=== PATIENT | male | born 1975 | race African-American/Black ===

== ENCOUNTER 2018-07-05 12:56 | Emergency (ER) | payer MEDICAID ==
[~2018-07-05] VITALS: Ht 180.3 cm; Wt 84.8 kg
[~2018-07-05 12:56] MED LIST: ALBUPOW26
[2018-07-05 15:12] VITALS: BP 140/87
[2018-07-05 16:10] LABS: Urine Bacteria NONE SEEN /hpf (None Seen); Urine Blood Negative /uL (Negative); Urine Mucus FEW (None Seen); Urine Specific Gravity 1.028 (1.001-1.035); Urine Sperm PRESENT /hpf (None Seen); Urine WBC 670 /hpf (0 - 3)
== END 2018-07-05 16:00 | disposition home or self-care (01) ==
LOC: ER 13:05
DX: N39.0 Urinary tract infection, site not specified (principal)
CPT/HCPCS: 81001

== ENCOUNTER 2023-03-26 10:52 | Emergency (ER) | payer MEDICAID ==
[~2023-03-26] VITALS: Ht 180.3 cm; Wt 81.6 kg
[2023-03-26 11:20] VITALS: BP 123/83; PULSE 107; RESP 18; TEMP 98.2; O2SAT 95
[2023-03-26] MEDS ORDERED: IPRATROPIUM BROM 0.5 MG/2.5ML INH SOL NEB ONE (11:30)
[2023-03-26] MEDS ORDERED: ALBUTEROL SULF 2.5 MG/0.5ML(0.5%) NEB SOLN NEB ONE (11:30)
== END 2023-03-26 12:04 | disposition home or self-care (01) ==
LOC: ER 10:52
DX: J45.901 Unspecified asthma with (acute) exacerbation (principal)
CPT/HCPCS: 94640

== ENCOUNTER 2023-03-27 23:39 | Emergency (ER) | payer MEDICAID ==
[~2023-03-27] VITALS: Ht 177.8 cm; Wt 86.3 kg
[2023-03-27 23:47] VITALS: BP 159/88; PULSE 94; RESP 20; O2SAT 97
[2023-03-28] MEDS ORDERED: methylPREDNISolone SOD SUCC 125 MG/2 ML VL IM ONE (00:45)
[2023-03-28] MEDS ORDERED: ALBUTEROL SULF 2.5 MG/0.5ML(0.5%) NEB SOLN NEB ONE (00:45)
[2023-03-28] MEDS ORDERED: IPRATROPIUM BROM 0.5 MG/2.5ML INH SOL NEB ONE (00:45)
== END 2023-03-28 00:40 | disposition left against medical advice (07) ==
LOC: EDBD 23:39 → EDSEX 23:39 → ER 23:39
DX: J45.901 Unspecified asthma with (acute) exacerbation (principal); R07.89 Other chest pain
CPT/HCPCS: 71045

== ENCOUNTER 2023-06-17 06:33 | Emergency (ER) | payer MEDICAID ==
[~2023-06-17] VITALS: Ht 180.3 cm; Wt 79.0 kg
[~2023-06-17 06:33] MED LIST changes: +NAPR-1335 PO
[2023-06-17 07:51] VITALS: BP 145/88; PULSE 85; RESP 16; TEMP 98.2; O2SAT 96
[2023-06-17] MEDS ORDERED: PRED20TA2 PO (08:05)
[2023-06-17] MEDS ORDERED: PROM1SOL4 PO (08:05)
== END 2023-06-17 08:14 | disposition home or self-care (01) ==
LOC: ER 06:33
DX: J20.9 Acute bronchitis, unspecified (principal); J45.909 Unspecified asthma, uncomplicated
CPT/HCPCS: 71045

== ENCOUNTER 2023-07-28 00:42 | Emergency (ER) | payer MEDICAID ==
[~2023-07-28] VITALS: Ht 180.3 cm; Wt 79.4 kg
[~2023-07-28 00:42] MED LIST changes: +PRED20TA2 PO; +PROM1SOL4 PO
[2023-07-28 03:20] LABS: Basophils # (auto) 0 10 ^3/uL (0-0.2); Basophils % (auto) 0.6 % (0.0-2.0); Eosinophils # (auto) 0.1 10 ^3/uL (0-0.8); Eosinophils % (auto) 1.9 % (0.0-7.0); Hematocrit 42.3 % (41.0-53.0); Hemoglobin 13.8 g/dL (13.5-17.5); Lymphocytes % (auto) 43.9 % (10.0-50.0); Mean Corpuscular Hemoglobin 31.3 pg (28.0-32.0); Mean Corpuscular Hgb Conc. 32.7 g/dL (32.0-36.0); Mean Corpuscular Volume 95.7 fL (80.0-100.0); Monocytes # (auto) 0.5 10 ^3/uL (0-1.3); Monocytes % (auto) 10.8 % (0.0-12.0); Neutrophils # (auto) 1.9 10 ^3/uL (1.6-8.6); Neutrophils % (auto) 42.8 % (37.0-80.0); Nucleated Red Blood Cells % 0.3 %; Red Blood Cells 4.42 10^6/uL (4.5-5.90); Red Cell Distribution Width 13.9 % (11.8-14.3); White Blood Cell 4.5 10^3/uL (4.4-10.8)
[2023-07-28] MEDS ORDERED: ACET500T58 PO (03:21)
[2023-07-28 03:29] LABS: Chloride 105 mmol/L (98-107); Potassium 3.3 mmol/L (3.5-5.1); Sodium 138 mmol/L (136-145)
[2023-07-28 03:30] LABS: Anion Gap 8 (5-15); Calcium 9.1 mg/dL (8.7-10.4); Carbon Dioxide 25 mmol/L (20-30)
[2023-07-28 03:35] LABS: BUN/Creatinine Ratio 13.1 (10.0-20.0); Blood Urea Nitrogen 13 mg/dL (9-23); Glucose 91 mg/dL (74-106)
[2023-07-28 03:52] LABS: COVID19 ANTIGEN SOFIA FIA NEGATIVE (NEGATIVE); Rapid Influenza A Negative (Negative); Rapid Influenza B Negative (Negative)
[2023-07-28 04:00] VITALS: BP 128/85; PULSE 84; RESP 18; TEMP 98.2; O2SAT 100
[2023-07-28] MEDS: POTASSIUM CHL 20 Meq TABLET PO ONE (04:15)
== END 2023-07-28 04:18 | disposition home or self-care (01) ==
LOC: ER 00:42
DX: K52.9 Noninfective gastroenteritis and colitis, unspecified (principal); E86.0 Dehydration; J45.909 Unspecified asthma, uncomplicated; Z20.822 Contact with and (suspected) exposure to COVID-19
CPT/HCPCS: 36415; 80048; 85025; 87426; 87804

== ENCOUNTER 2023-09-11 01:51 | Emergency (ER) | payer MEDICAID ==
[~2023-09-11] VITALS: Ht 180.3 cm; Wt 78.2 kg
[~2023-09-11 01:51] MED LIST changes: +ACET500T58 PO
[2023-09-11 02:15] VITALS: BP 128/86; PULSE 92; RESP 16; TEMP 97.2
[2023-09-11] MEDS ORDERED: IBUP-1455 PO (03:25)
[2023-09-11] MEDS ORDERED: BACDST PO (03:25)
[2023-09-11] MEDS ORDERED: HYDR-4902 PO (03:25)
[2023-09-11] MEDS: HYDROcodone-ACET 5/325MG TAB PO ONE (03:56)
[2023-09-11 04:20] VITALS: O2SAT 97
== END 2023-09-11 04:33 | disposition home or self-care (01) ==
LOC: ER 01:51
DX: L02.211 Cutaneous abscess of abdominal wall (principal); J45.909 Unspecified asthma, uncomplicated

== ENCOUNTER 2023-09-15 01:12 | Emergency (ER) | payer MEDICAID ==
[~2023-09-15] VITALS: Ht 172.7 cm; Wt 72.0 kg
[2023-09-15 01:12] VITALS: BP 146/90; PULSE 87; RESP 18; O2SAT 100
[~2023-09-15 01:12] MED LIST changes: +BACDST PO; +HYDR-4902 PO; +IBUP-1455 PO
[2023-09-15] MEDS ORDERED: CEPH500C PO (04:43)
[2023-09-15] MEDS ORDERED: KETOROLAC TROMETH 60MG/2ML VIAL IM ONE (04:45)
[2023-09-15] MEDS: cefTRIAXone SOD 1,000 MG VL IM ONE (04:56)
== END 2023-09-15 05:01 | disposition home or self-care (01) ==
LOC: ER 01:12 → EDBD 01:12 → ER 05:01
DX: L03.311 Cellulitis of abdominal wall (principal); F17.210 Nicotine dependence, cigarettes, uncomplicated; F12.10 Cannabis abuse, uncomplicated; F15.10 Other stimulant abuse, uncomplicated; J45.909 Unspecified asthma, uncomplicated
CPT/HCPCS: 96372; 99283; J0696

== ENCOUNTER 2023-09-17 13:26 | Emergency (ER) | payer MEDICAID ==
[~2023-09-17] VITALS: Ht 180.3 cm; Wt 73.8 kg
[~2023-09-17 13:26] MED LIST changes: +CEPH500C PO
[2023-09-17 14:15] VITALS: BP 134/84; PULSE 96; RESP 16; TEMP 97.5; O2SAT 95
[2023-09-17] MEDS ORDERED: CEPH500C PO (14:41)
[2023-09-17] MEDS ORDERED: NAPR-746 PO (14:41)
== END 2023-09-17 14:47 | disposition home or self-care (01) ==
LOC: ER 13:36
DX: L02.211 Cutaneous abscess of abdominal wall (principal); Z48.01 Encounter for change or removal of surgical wound dressing; J45.909 Unspecified asthma, uncomplicated; F17.210 Nicotine dependence, cigarettes, uncomplicated; F12.10 Cannabis abuse, uncomplicated; F15.10 Other stimulant abuse, uncomplicated; Z79.899 Other long term (current) drug therapy

== ENCOUNTER 2023-10-05 01:20 | Emergency (ER) | payer MEDICAID ==
[~2023-10-05] VITALS: Ht 180.3 cm; Wt 77.5 kg
[~2023-10-05 01:20] MED LIST changes: +NAPR-746 PO
[2023-10-05 01:39] VITALS: BP 139/99; PULSE 103; RESP 20; O2SAT 98
== END 2023-10-05 07:46 | disposition left against medical advice (07) ==
LOC: ER 01:20
DX: M25.562 Pain in left knee (principal); Z53.21 Procedure and treatment not carried out due to patient leaving prior to being seen by health care provider

== ENCOUNTER 2023-10-27 06:34 | Emergency (ER) | payer MEDICAID ==
[~2023-10-27] VITALS: Ht 180.3 cm; Wt 81.4 kg
[2023-10-27 06:45] VITALS: BP 134/93; PULSE 83
[2023-10-27 07:00] VITALS: RESP 18; O2SAT 100
[2023-10-27] MEDS: IPRATROPIUM BROM 0.5 MG/2.5ML INH SOL NEB ONE (07:00)
[2023-10-27] MEDS: ALBUTEROL SULF 2.5 MG/0.5ML(0.5%) NEB SOLN NEB ONE (07:00)
== END 2023-10-27 07:42 | disposition left against medical advice (07) ==
LOC: ER 06:34
DX: J45.909 Unspecified asthma, uncomplicated (principal); Z53.21 Procedure and treatment not carried out due to patient leaving prior to being seen by health care provider
CPT/HCPCS: 94640

== ENCOUNTER 2023-11-27 20:20 | Emergency (ER) | payer MEDICAID ==
[~2023-11-27] VITALS: Ht 175.3 cm; Wt 85.0 kg
[2023-11-27 20:20] VITALS: BP 140/89; RESP 20; O2SAT 100
[2023-11-27 20:46] VITALS: PULSE 82
== END 2023-11-27 21:47 | disposition left against medical advice (07) ==
LOC: EDBD 20:20 → ER 20:20
DX: J45.901 Unspecified asthma with (acute) exacerbation (principal); F17.210 Nicotine dependence, cigarettes, uncomplicated; F12.10 Cannabis abuse, uncomplicated; F15.10 Other stimulant abuse, uncomplicated
CPT/HCPCS: 93005

== ENCOUNTER 2023-12-22 00:03 | Emergency (ER) | payer MEDICAID ==
[~2023-12-22] VITALS: Ht 177.8 cm; Wt 82.3 kg
[2023-12-22 00:05] VITALS: BP 144/100; RESP 18; TEMP 98.8; O2SAT 96
[2023-12-22] MEDS ORDERED: ALBUAER3 IN (01:37)
[2023-12-22] MEDS ORDERED: PRED20TA2 PO (01:37)
[2023-12-22] MEDS ORDERED: AZIT-43 PO (01:37)
[2023-12-22 01:48] VITALS: PULSE 83
== END 2023-12-22 01:51 | disposition home or self-care (01) ==
LOC: ER 00:03 → EDBD 00:03 → ER 01:46
DX: J06.9 Acute upper respiratory infection, unspecified (principal); F15.10 Other stimulant abuse, uncomplicated; J45.909 Unspecified asthma, uncomplicated; F17.210 Nicotine dependence, cigarettes, uncomplicated
CPT/HCPCS: 71045; 93005

== ENCOUNTER 2024-02-07 18:41 | Emergency (ER) | payer MEDICAID ==
[~2024-02-07] VITALS: Ht 172.7 cm; Wt 68.2 kg
[2024-02-07] MEDS: ONDANSETRON HCL 4 MG/2 ML VIAL IV ONE (01:00)
[2024-02-07] MEDS: DEXTROSE (50%) 50ML SYRG IV ONE (01:00)
[2024-02-07] MEDS: SODIUM CHLORIDE 0.9% 1,000 ML IV ONE (01:00)
[~2024-02-07 18:41] MED LIST changes: +ALBUAER3 IN; +AZIT-43 PO
[2024-02-07 19:16] LABS: Basophils # (auto) 0 10 ^3/uL (0-0.2); Basophils % (auto) 0.1 % (0.0-2.0); Eosinophils # (auto) 0 10 ^3/uL (0-0.8); Eosinophils % (auto) 0.6 % (0.0-7.0); Hematocrit 44.8 % (41.0-53.0); Hemoglobin 14.4 g/dL (13.5-17.5); Lymphocytes # (auto) 2.7 10 ^3/uL (0.4-5.4); Lymphocytes % (auto) 47.1 % (10.0-50.0); Mean Corpuscular Hemoglobin 31.9 pg (28.0-32.0); Mean Corpuscular Hgb Conc. 32.2 g/dL (32.0-36.0); Mean Corpuscular Volume 99.3 fL (80.0-100.0); Monocytes # (auto) 0.5 10 ^3/uL (0-1.3); Monocytes % (auto) 8.3 % (0.0-12.0); Neutrophils # (auto) 2.5 10 ^3/uL (1.6-8.6); Neutrophils % (auto) 43.9 % (37.0-80.0); Nucleated Red Blood Cells % 0.1 %; Platelet Count (auto) 255 10^3/uL (140-450); Red Blood Cells 4.52 10^6/uL (4.5-5.90); Red Cell Distribution Width 13.8 % (11.8-14.3); White Blood Cell 5.7 10^3/uL (4.4-10.8)
[2024-02-07 19:35] LABS: Alanine Aminotransferase 38 U/L (7-40); Alkaline Phosphatase 88 U/L (46-116); Anion Gap 12 (5-15); BUN/Creatinine Ratio 12.6 (10.0-20.0); Blood Urea Nitrogen 12 mg/dL (9-23); Calcium 9.8 mg/dL (8.7-10.4); Carbon Dioxide 24 mmol/L (20-31); Chloride 105 mmol/L (98-107); Lipase 42 U/L (12-53); Potassium 4.3 mmol/L (3.5-5.1); Sodium 141 mmol/L (136-145)
[2024-02-07 19:36] LABS: Albumin 4.4 g/dL (3.2-4.8); Bilirubin, Total 0.7 mg/dL (0.2-1.0); Total Protein 7.5 g/dL (5.7-8.2)
[2024-02-07 19:40] LABS: Aspartate Aminotransferase 46 U/L (13-40); Glucose 68 mg/dL (74-106)
[2024-02-07 19:42] LABS: Lactic Acid w/Reflex 2.6 mmol/L (0.4-2.0)
--- NOTE | 2024-02-07 19:54 | ED.PDOC ---
GI ASSESSMENT HPI Comments HPI: HPI: Poor Historian. 48-year-old male [place] in by ambulance [place] the bus stop. Patient requested someone to call 911 because he was having abdominal pain with nausea and vomiting. Patient states having generalized abdominal pain that is intermittent. He said that he suspects he got a food poisoning from eating [place] food earlier today. Vomit is nonbilious nonbloody. Denies diarrhea. No particular alleviating or precipitating factors. Initial Vitals: Temp : 97.7F BP: 170/109 HR: 76 RR: 18 O2 Sat.: 99% Past Medical History: Asthma Past Surgical History: Denies Social History: Smokes cigarettes, denies ETOH use, Marijuana and Methamphetamine use. Medications: No medications. Allergies: NKDA REVIEW OF SYSTEMS: CONSTITUTIONAL: Denies acute: fever, diaphoresis, chills, HEAD: Denies acute: headache, photophobia Eyes: Denies acute: Double vision, vision loss, eye pain, eye discharge. EARS: Denies acute: tinnitus, hearing loss, ear discharge, ear pain, THROAT: Denies acute: sore throat, swelling, difficulty swallowing , pain with swallowing, change in voice. NECK: Denies acute: neck pain, neck swelling, stiff neck. HEART: Denies acute : chest pain, palpitations, LUNGS: Denies acute: SOB, wheezing, cough, hemoptysis ABDOMEN: Denies acute: diarrhea, melena , hematemesis, hematochezia SKIN: Denies acute: rash, redness, lesions, itchiness. EXTREMITIES: Denies acute: calf pain, numbness, tingling, weakness, denies pain in extremity. Denies acute: Low back pain. Neuro: Denies acute: focal neurological deficit, motor or sensory focal neurological deficit, tremors, seizure like activity, confusion, dizziness, change in mental status, loss of bowel or bladder function, cauda equina like symptoms. : Denies acute: dysuria, hematuria, flank pain, increase in urinary frequency. PSYCH: Denies acute: hallucination, suicidal ideation, homicidal ideation. PHYSICAL EXAM: General: Mild acute distress, awake and alert. Head: normocephalic, atraumatic. Neck: supple, trachea is midline, no swelling. Throat: Normal phonation. Eyes:, no erythema, no purulent discharge, no proptosis, no icterus. Heart: regular rate, regular rhythm, no significant murmur appreciated. Lungs: no apparent respiratory distress, Able to speak in full sentences. No wheezing, no rhonchi, no crackles. No stridors Clear to auscultation bilaterally. Abdomen: Nonspecific mild generalized tender to palpation, non distended, soft, no guarding, no rebound, + bowel sounds. Neuro: Awake, Alert, oriented to name, self, situation, follows commands Skin: no petechia, no purpura, no cyanosis, non-pale, not jaundice. Lower extremities: --no - Pitting edema no deformity, no focal swelling, no calf TTP. Makes eye contact. Face: no apparent facial droop. No nuchal rigidity, Kernig's sign, Brudzinski's sign, no meningeal signs. Chief Complaint: Abdominal Pain Time Seen by MD: 19:40 Primary Care Provider: UNKNOWN Reviewed Notes: Medications, Allergies Allergies: Coded Allergies: NO KNOWN ALLERGIES (Unverified , 12/14/09) Home Meds Active Scripts Prednisone (Prednisone) 20 Mg Tab, 20 MG PO BID for 5 Days, #10 TAB 0 Refills Prov:CALEB MEIER 12/22/23 Albuterol Sulfate (VENTOLIN MDI) 90 Mcg Ih, 2 PUFF IN Q6HPRN, #1 INH 0 Refills Prov:CALEB MEIER 12/22/23 Azithromycin (Azithromycin) 250 Mg Tab, 250 MG PO DAILY MDD 500 for 5 Days, #6 TAB 0 Refills 2 TABLETS ORALLY ON DAY ONE, THEN 1 TABLET ORALLY DAILY FOR 4 DAYS Prov:CALEB MEIER 12/22/23 Naproxen (Naproxen) 500 Mg Tab, 500 MG PO BID, #20 TAB Prov:DENISSE PAIZ 09/17/23 Cephalexin Monohydrate (Cephalexin) 500 Mg Cap, 1 CAP PO QID, #28 CAP Prov:DENISSE PAIZ 09/17/23 Cephalexin Monohydrate (Cephalexin) 500 Mg Cap, 1 CAP PO BID for 7 Days, #14 CAP 0 Refills Prov:CALEB MEIER 09/15/23 Sulfamethoxazole W/Trimethopri (Bactrim Ds Tablet) 1 Tab Tb, 1 TAB PO BID for 7 Days, #14 TAB Prov:RUBEN SAGASTUME PAC 09/11/23 Ibuprofen Micronized (Ibuprofen) 800 Mg Tab, 800 MG PO Q8HPRN PRN, #20 TAB Prov:RUBEN SAGASTUMEO [facility] 09/11/23 Hydrocodone-Acetaminophen (Hydrocodone Bitartrate/AC 5-325 mg) 1 Tab Tab, 1 TAB PO Q6HPRN PRN, #10 TAB Prov:RUBEN SAGASTUME SOFIA [facility] 09/11/23 Acetaminophen (Acetaminophen) 500 Mg Tab, 500 MG PO Q4HPRN, #30 TAB 0 Refills Prov:CALEB MEIER 07/28/23 Promethazine-Dm (Promethazine Dm 6.25-15 mg/5Ml) 1 Karolina Karolina, 5 ML PO TID, #150 ML Prov:DENISSE PAIZ 06/17/23 Prednisone (Prednisone) 20 Mg Tab, 60 MG PO DAILY, #15 TAB Prov:DENISSE PAIZ 06/17/23 Naproxen Sodium (Naproxen) 220 Mg Tab, 220 MG PO BID PRN for 7 Days, #14 TAB Prov:ALFONZO GLEASON MD 05/29/23 Reported Medications Albuterol (Albuterol) Pow 12/14/09 Information Source: Patient Mode of Arrival: EMS Was a procedure done? Was a procedure done?: No GI differential Dx Differential Diagnosis: Other (DDX include but not limited to diverticulitis, colitis, gastroenteritis, acute abdomen, SBO, enteritis, constipation, volvulus, appendicitis, Gallbladder disease, choledocolithiasis, ascending cholangitis, pancreatitis, intraAbdominal mass/neoplasm, hepatitis, UTI, pylonephritis, kidney stone, aneurysm, dissection, Inflammatory bowel disease, gastroparesis, ischemic bowel.) X-Ray, Labs, Meds, VS Vital Signs Date Time Temp Pulse Resp B/P (MAP) Pulse Ox O2 Delivery O2 Flow Rate FiO2 02/08/24 02:30 88 15 124/76 (92) 96 02/08/24 01:56 105 16 98 Room Air* 0 21 02/08/24 01:10 91 14 114/65 (81) 96 02/07/24 22:35 95 02/07/24 22:35 16 114/65 (81) 02/07/24 18:41 97.7 76 18 170/109 (129) 99 Lab Test 02/08/24 05:09 02/08/24 04:31 02/08/24 02:36 02/08/24 02:28 Range/Units Lactic Acid Level Pending 2.3 *H 0.4-2.0 mmol/L POC Glucose 95 70-106 mg/dl Urine Color Yellow Yellow Urine Clarity Clear Clear Urine pH 5.5 5.0-9.0 Urine Specific [place] 1.030 1.001-1.035 Urine Protein Trace H Negative Urine Ketones 1+ H Negative Urine Blood Negative Negative /uL Urine Nitrite Negative Negative Urine Bilirubin Negative Negative Urine Urobilinogen Normal Negative mg/dL Urine Leukocyte Esterase Negative Negative /uL Urine RBC 1 0 - 3 /hpf Urine WBC 1 0 - 3 /hpf Urine Squamous Epithelial Cells Few <5 /hpf Urine Bacteria None seen None Seen /hpf Urine Mucus Few None Seen Urine Glucose 2+ H Normal mg/dL Urine Opiates Screen Neg NEGATIVE Urine Fentanyl Screen Pos NEGATIVE Urine Barbiturates Screen Neg NEGATIVE Urine Phencyclidine Screen Pos NEGATIVE Urine Amphetamines Screen Pos NEGATIVE Urine Benzodiazepines Screen Neg NEGATIVE Urine Cocaine Screen Neg NEGATIVE Urine Cannabinoids Screen Neg NEGATIVE Test 02/08/24 00:38 02/07/24 21:13 02/07/24 19:06 Range/Units Lactic Acid Level 2.4 *H 3.4 *H 2.6 *H 0.4-2.0 mmol/L White Blood Count 5.7 4.4-10.8 10^3/uL Red Blood Count 4.52 4.5-5.90 10^6/uL Hemoglobin 14.4 13.5-17.5 g/dL Hematocrit 44.8 41.0-53.0 % Mean Corpuscular Volume 99.3 80.0-100.0 fL Mean Corpuscular Hemoglobin 31.9 28.0-32.0 pg Mean Corpuscular Hemoglobin Concent 32.2 32.0-36.0 g/dL Red Cell Distribution Width 13.8 11.8-14.3 % Platelet Count 255 140-450 10^3/uL Mean Platelet Volume 7.0 6.9-10.8 fL Neutrophils (%) (Auto) 43.9 37.0-80.0 % Lymphocytes (%) (Auto) 47.1 10.0-50.0 % Monocytes (%) (Auto) 8.3 0.0-12.0 % Eosinophils (%) (Auto) 0.6 0.0-7.0 % Basophils (%) (Auto) 0.1 0.0-2.0 % Neutrophils # (Auto) 2.5 1.6-8.6 10 ^3/uL Lymphocytes # (Auto) 2.7 0.4-5.4 10 ^3/uL Monocytes # (Auto) 0.5 0-1.3 10 ^3/uL Eosinophils # (Auto) 0 0-0.8 10 ^3/uL Basophils # (Auto) 0 0-0.2 10 ^3/uL Nucleated Red Blood Cells 0.1 % Sodium Level 141 136-145 mmol/L Potassium Level 4.3 3.5-5.1 mmol/L Chloride Level 105 98-107 mmol/L Carbon Dioxide Level 24 20-31 mmol/L Anion Gap 12 5-15 Blood Urea Nitrogen 12 9-23 mg/dL Creatinine 0.95 0.700-1.30 mg/dL Glomerular Filtration Rate Calc 99 >90 mL/min BUN/Creatinine Ratio 12.6 10.0-20.0 Serum Glucose 68 L 74-106 mg/dL Calcium Level 9.8 8.7-10.4 mg/dL Total Bilirubin 0.7 0.2-1.0 mg/dL Aspartate Amino Transferase (AST) 46 H 13-40 U/L Alanine Aminotransferase (ALT) 38 7-40 U/L Alkaline Phosphatase 88 46-116 U/L Total Protein 7.5 5.7-8.2 g/dL Albumin 4.4 3.2-4.8 g/dL Lipase 42 12-53 U/L Current Medications Medications (Trade) Dose Ordered Sig/Daryl Route Start Time Stop Time Status Last Admin Sodium Chloride 1,000 ml @ 1,000 mls/hr Q1H ONCE IV 02/07/24 19:00 02/07/24 19:59 DC 02/07/24 01:00 Ondansetron HCl (Zofran) 8 mg ONCE ONCE IV 02/07/24 19:00 02/07/24 19:01 DC 02/07/24 01:00 Dextrose 50 ml ONCE ONCE IV 02/07/24 22:00 02/07/24 22:02 DC 02/07/24 01:00 Sodium Chloride 1,000 ml @ 1,000 mls/hr Q1H ONCE IV 02/08/24 03:15 02/08/24 04:14 DC 02/08/24 03:[address] [address] Ph: [phone] DIAGNOSTIC IMAGING Diagnostic Imaging Report : [id number] Signed PATIENT: SHEN BEAR ACCT: [id number] UNIT: [id number] : 1975 LOC: ER ROOM / BED: / AGE / SEX: 48 / M ADM STATUS: REG ER SERVICE 184 ORDERING PHYSICIAN: SACHIN KEE DO PROCEDURE(s): ABPL - CT AB PEL WO CON-NO ORAL OR IV REASON: abd pain n/v ORDER NUMBER(s): [id number], ACCESSION NUMBER(s): [id number] Exam: CT CT AB PEL WO CON-NO ORAL OR IV History: abd pain n/v Comparison Study: None available at time of dictation. Technique: Multidetector spiral CT of the abdomen was performed from lung bases to pubic symphysis. Imaging was performed without IV contrast. Axial, coronal and sagittal multiplanar reformats were obtained from the axial data set by the technologist. Radiation Dose : 1. Abdomen/Pelvis: CTDIvol 8 mGy, DLP 411 mGy*cm. Findings: Evaluation of solid organs is limited due to lack of intravenous contrast use. Lung Bases: No acute or significant lung base finding. Normal heart size. No pleural or pericardial effusion. Liver: The liver is normal in size. No focal lesions. Gallbladder and Biliary Tree: Unremarkable Spleen: Unremarkable Pancreas: The pancreas is grossly normal in appearance. Adrenal Glands: Unremarkable Kidneys: Kidneys are grossly normal without calculi or hydronephrosis. Bladder: Grossly unremarkable for degree of distention. Bowel: The stomach is grossly normal in appearance. Small bowel and colon are normal in caliber and distribution. The appendix is not visualized; however, no secondary findings of acute appendicitis identified. Ascites: Absent Lymphadenopathy: No mesenteric, retroperitoneal or periportal lymphadenopathy. Abdominal Wall and Mesentery: Unremarkable. Vasculature: The visualized abdominal aorta is normal in size and caliber. Evaluation of abdominal and pelvic vessels is limited due to lack of intravenous contrast. Pelvic Organs: Bilateral testes possibly within the inguinal canals. Musculoskeletal: No aggressive focal bony lesions, acute fractures or dislocation. IMPRESSION: Severely limited evaluation without IV and oral contrast. There is minimal intra-abdominal fat limiting evaluation of the small bowel and colon. The bilateral testicles appear to be within the proximal inguinal canals. Correlation with physical exam recommended. ATED BY: SHASTA WILSON DO DICTATED DATE/TIME: 02/07/242320 SIGNED BY: SHASTA WILOSN DO SIGNED DATE/TIME: 02/07/242320 Time of 1ST Reevaluation: 20:40 Reevaluation 1ST: Unchanged Time of 2ND Reevaluation: 05:30 (Patient abdominal pain has resolved he has been resting in asleep in bed for awhile without any nausea or vomiting or any acute distress.) Reevaluation 2ND: Resolved Patient Education/Counseling: Diagnosis, Treatment Family Education/Counseling: No Family Present Comments Patient presented with the above HPI.---abdominal pain---workup was initiated. patient was found with the above mentioned diagnosis. Patient was given: NS fluids and Zofran. Patient had an episode of hypoglycemia he was given an amp of D50. His Accu-Cheks remained stable afterwards Patient ED course and VS have been stabilized. Patient has been reassessed in the ED and remained in a stable condition. Pertinent incidental findings were discussed with the patient and/or family. Patient/family voices understanding and is agreeable with plan. Patient has been observed in the ED adequate length of time to insure improvement/stability. patient was discharged home in a stable condition All the reports of any imaging studies that were ordered by myself were reviewed by myself. Departure 1 Departure Time of Disposition: 05:29 Impression: Primary Impression: Nausea & vomiting Additional Impressions: Abdominal pain Abnormal finding on CT scan Polysubstance abuse Fentanyl use disorder, mild Methamphetamine abuse PCP abuse Undescended testicle of both sides Disposition: HOME / SELF CARE / HOMELESS Condition: Stable Additional Instructions: Additional discharge instructions: You MUST follow-up with your primary care/family doctor in 1 to 2 days. If you are unable to see your primary care/family doctor, please return to our emergency room for re-assessment and re-evaluation in 1 to 2 days. Return to the emergency room here in our facility or to the nearest ER [facility] if your symptoms change or worsen. CONSULTATIONS: you MUST Follow-up for consultation as soon as possible with: -psychiatry in general surgery and Urology in 1-2 days. Please call for appointment You MUST call the consultants office yourself to make an appointment. You may n eed to arrange that through your insurance and/or your primary/family doctor. If you are unable to see the environmental remediation consultant in 1 to 2 days, you must return to our emergency room (or any other ER of your choice) for re-assessment and re- evaluation. Adequate fluid hydration. Seek help regarding your drug addiction Below is a copy of your radiological report for follow up: [address] [address] Ph: [phone] DIAGNOSTIC IMAGING Diagnostic Imaging Report : [id number] Signed PATIENT: SHEN BEAR ACCT: [id number] UNIT: [id number] : 1975 LOC: ER ROOM / BED: / AGE / SEX: 48 / M ADM STATUS: REG ER SERVICE 184 ORDERING PHYSICIAN: SACHIN KEE DO PROCEDURE(s): ABPL - CT AB PEL WO CON-NO ORAL OR IV REASON: abd pain n/v ORDER NUMBER(s): [id number], ACCESSION NUMBER(s): [id number] Exam: CT CT AB PEL WO CON-NO ORAL OR IV History: abd pain n/v Comparison Study: None available at time of dictation. Technique: Multidetector spiral CT of the abdomen was performed from lung bases to pubic symphysis. Imaging was performed without IV contrast. Axial, coronal and sagittal multiplanar reformats were obtained from the axial data set by the technologist. Radiation Dose : 1. Abdomen/Pelvis: CTDIvol 8 mGy, DLP 411 mGy*cm. Findings: Evaluation of solid organs is limited due to lack of intravenous contrast use. Lung Bases: No acute or significant lung base finding. Normal heart size. No pleural or pericardial effusion. Liver: The liver is normal in size. No focal lesions. Gallbladder and Biliary Tree: Unremarkable Spleen: Unremarkable Pancreas: The pancreas is grossly normal in appearance. Adrenal Glands: Unremarkable Kidneys: Kidneys are grossly normal without calculi or hydronephrosis. Bladder: Grossly unremarkable for degree of distention. Bowel: The stomach is grossly normal in appearance. Small bowel and colon are normal in caliber and distribution. The appendix is not visualized; however, no secondary findings of acute appendicitis identified. Ascites: Absent Lymphadenopathy: No mesenteric, retroperitoneal or periportal lymphadenopathy. Abdominal Wall and Mesentery: Unremarkable. Vasculature: The visualized abdominal aorta is normal in size and caliber. Evaluation of abdominal and pelvic vessels is limited due to lack of intravenous contrast. Pelvic Organs: Bilateral testes possibly within the inguinal canals. Musculoskeletal: No aggressive focal bony lesions, acute fractures or dislocation. IMPRESSION: Severely limited evaluation without IV and oral contrast. There is minimal intra-abdominal fat limiting evaluation of the small bowel and colon. The bilateral testicles appear to be within the proximal inguinal canals. Correlation with physical exam recommended. ATED BY: SHASTA WILSON DO DICTATED DATE/TIME: 02/07/242320 SIGNED BY: SHASTA WILSON DO SIGNED DATE/TIME: 02/07/242320 CC: Discharged With: Self Critical Care Note Critical Care Time?: Yes (35 min-critical care time only) I personally scribed for SACHIN KEE DO ([email or web address]) on 02/07/24 at 19:54. Electronically submitted by Son Corey ([email or web address]). I personally scribed for SACHIN KEE DO ([email or web address]) on 02/08/24 at 03:18. Electronically submitted by Rosalio Adams ([email or web address]). SACHIN KEE DO Feb 07, 2024 19:54
--- NOTE | 2024-02-07 23:24 | DVH ---
Exam: CT CT AB PEL WO CON-NO ORAL OR IV History: abd pain n/v Comparison Study: None available at time of dictation. Technique: Multidetector spiral CT of the abdomen was performed from lung bases to pubic symphysis. Imaging was performed without IV contrast. Axial, coronal and sagittal multiplanar reformats were ob tained from the axial data set by the technologist. Radiation Dose : 1. Abdomen/Pelvis: CTDIvol 8 mGy, DLP 411 mGy*cm. Findings: Evaluation of solid organs is limited due to lack of intravenous contrast use. Lung Bases: No acute or significant lung base finding. Normal heart size. No pleural or pericardial effusion. Liver: The liver is normal in size. No focal lesions. Gallbladder and Biliary Tree: Unremarkable Spleen: Unremarkable Pancreas: The pancreas is grossly normal in appearance. Adrenal Glands: Unremarkable Kidneys: Kidneys are grossly normal without calculi or hydronephrosis. Bladder: Grossly unremarkable for degree of distention. Bowel: The stomach is grossly normal in appearance. Small bowel and colon are normal in caliber and d istribution. The appendix is not visualized; however, no secondary findings of acute appendicitis id entified. Ascites: Absent Lymphadenopathy: No mesenteric, retroperitoneal or periportal lymphadenopathy. Abdominal Wall and Mesentery: Unremarkable. Vasculature: The visualized abdominal aorta is normal in size and caliber. Evaluation of abdominal a nd pelvic vessels is limited due to lack of intravenous contrast. Pelvic Organs: Bilateral testes possibly within the inguinal canals. Musculoskeletal: No aggressive focal bony lesions, acute fractures or dislocation. IMPRESSION: Severely limited evaluation without IV and oral contrast. There is minimal intra-abdominal fat limit ing evaluation of the small bowel and colon. The bilateral testicles appear to be within the proximal inguinal canals. Correlation with physical exam recommended.
[2024-02-08 01:40] LABS: Lactic Acid w/Reflex 2.4 mmol/L (0.4-2.0)
[2024-02-08 01:56] VITALS: PULSE 105; RESP 16; O2SAT 98
[2024-02-08 03:07] LABS: Lactic Acid w/Reflex 2.3 mmol/L (0.4-2.0)
[2024-02-08] MEDS: SODIUM CHLORIDE 0.9% 1,000 ML IV ONE (03:22)
[2024-02-08 04:47] LABS: Urine Bacteria None Seen /hpf (None Seen)
[2024-02-08 04:57] LABS: Urine Blood Negative /uL (Negative); Urine Clarity Clear (Clear); Urine Color Yellow (Yellow); Urine Mucus FEW (None Seen); Urine Protein, UAD TRACE (Negative); Urine Urobilinogen Normal (Negative); Urine WBC 1 /hpf (0 - 3); Urine pH 5.5 (5.0-9.0)
[2024-02-08 05:05] LABS: Amphetamine Screen, Urine Pos (NEGATIVE); Barbiturate Scree,Urine Neg (NEGATIVE); Benzodiazephine Screen, Urine Neg (NEGATIVE); Cannabinoid Screen, Urine Neg (NEGATIVE); Cocaine Screen, Urine Neg (NEGATIVE); Opiate Scree,Urine Neg (NEGATIVE); Phencyclidine Screen, Urine Pos (NEGATIVE)
[2024-02-08] MEDS: NALOXONE HCL 1MG/ML 2ML SYRINGE IV ONE (05:45)
[2024-02-08 05:58] VITALS: BP 120/84; PULSE 90; RESP 16; O2SAT 98
== END 2024-02-08 06:00 | disposition home or self-care (01) ==
LOC: EDBD 18:41 → ER 18:41
DX: F16.10 Hallucinogen abuse, uncomplicated (principal); Q53.20 Undescended testicle, unspecified, bilateral; F19.10 Other psychoactive substance abuse, uncomplicated; R93.89 Abnormal findings on diagnostic imaging of other specified body structures; R10.84 Generalized abdominal pain; R11.2 Nausea with vomiting, unspecified; J45.909 Unspecified asthma, uncomplicated; F17.210 Nicotine dependence, cigarettes, uncomplicated; Z79.52 Long term (current) use of systemic steroids; Z79.899 Other long term (current) drug therapy
CPT/HCPCS: 36415; 74176; 80053; 80307; 81001; 82962; 83605; 83690; 85025; 96361; 96374; 96375; 99285; J2310; J2405; J7030; J7042

== ENCOUNTER 2024-02-25 00:55 | Emergency (ER) | payer MEDICAID ==
[~2024-02-25] VITALS: Ht 180.3 cm; Wt 80.8 kg
[2024-02-25 02:45] VITALS: BP 147/90; TEMP 98.4
[2024-02-25 03:05] VITALS: PULSE 91; RESP 16; O2SAT 98
[2024-02-25] MEDS ORDERED: MUPI2OIN2 EX (03:09)
[2024-02-25] MEDS ORDERED: DOXY100C4 PO (03:09)
--- NOTE | 2024-02-25 03:09 | ED.PDOC ---
History of Present Illness(SKN HPI Comments 48-year-old male presents to the ED chief complaint rash. Patient states rash to his mid lower abdomen x2 days he notes history of rash in the past in the same location was prescribed antibiotics which has resolved it but now he states his return in the over the past 2 days. He denies any fevers chills nausea vomiting or any other known rashes. Chief Complaint: Wound Check Time Seen by MD: 02:00 Primary Care Provider: UNKNOWN History of Present Illness: Nurses Notes, Medications, Allergies Allergies: Coded Allergies: NO KNOWN ALLERGIES (Unverified , 12/14/09) Home Meds Active Scripts Mupirocin (Pseudomonas Fluores (Mupirocin) 2 % Oin, 2 % EX BID for 5 Days, #22 GRAMS Prov:ANMOL THIBODEAUX [facility] 02/25/24 Doxycycline Hyclate (Doxycycline Hyclate) 100 Mg Cap, 1 CAP PO BID for 7 Days, #14 CAP Prov:ANMOL THIBODEAUX [facility] 02/25/24 Prednisone (Prednisone) 20 Mg Tab, 20 MG PO BID for 5 Days, #10 TAB 0 Refills Prov:CALEB MEIER 12/22/23 Albuterol Sulfate (VENTOLIN MDI) 90 Mcg Ih, 2 PUFF IN Q6HPRN, #1 INH 0 Refills Prov:CALEB MEIER 12/22/23 Azithromycin (Azithromycin) 250 Mg Tab, 250 MG PO DAILY MDD 500 for 5 Days, #6 TAB 0 Refills 2 TABLETS ORALLY ON DAY ONE, THEN 1 TABLET ORALLY DAILY FOR 4 DAYS Prov:CALEB MEIER 12/22/23 Naproxen (Naproxen) 500 Mg Tab, 500 MG PO BID, #20 TAB Prov:DENISSE PAIZ 09/17/23 Cephalexin Monohydrate (Cephalexin) 500 Mg Cap, 1 CAP PO QID, #28 CAP Prov:DENISSE PAIZ 09/17/23 Cephalexin Monohydrate (Cephalexin) 500 Mg Cap, 1 CAP PO BID for 7 Days, #14 CAP 0 Refills Prov:CALEB MEIER 09/15/23 Sulfamethoxazole W/Trimethopri (Bactrim Ds Tablet) 1 Tab Tb, 1 TAB PO BID for 7 Days, #14 TAB Prov:RUBEN SAGASTUME [facility] 09/11/23 Ibuprofen Micronized (Ibuprofen) 800 Mg Tab, 800 MG PO Q8HPRN PRN, #20 TAB Prov:RUBEN SAGASTUME [facility] 09/11/23 Hydrocodone-Acetaminophen (Hydrocodone Bitartrate/AC 5-325 mg) 1 Tab Tab, 1 TAB PO Q6HPRN PRN, #10 TAB Prov:RUBEN SAGASTUME 09/11/23 Acetaminophen (Acetaminophen) 500 Mg Tab, 500 MG PO Q4HPRN, #30 TAB 0 Refills Prov:CALEB MEIER 07/28/23 Promethazine-Dm (Promethazine Dm 6.25-15 mg/5Ml) 1 Karolina Karolina, 5 ML PO TID, #150 ML Prov:DENISSE PAIZ 06/17/23 Prednisone (Prednisone) 20 Mg Tab, 60 MG PO DAILY, #15 TAB Prov:DENISSE PAIZ 06/17/23 Naproxen Sodium (Naproxen) 220 Mg Tab, 220 MG PO BID PRN for 7 Days, #14 TAB Prov:ALFONZO GLEASON MD 05/29/23 Reported Medications Albuterol (Albuterol) Pow 12/14/09 Information Source: Patient Mode of Arrival: Ambulatory Past Medical History PAST MEDICAL HISTORY: Asthma Surgical History: Denies all surgeries Family History Family History: Unknown Social History Smoker: Cigarettes, Less Than 1 Pack/Day Alcohol: Denies ETOH Use Drugs: Marijuana, Methamphetamine Lives In: Home Constitutional: denies: chills, diaphoresis, fatigue, fever, malaise, sweats, weakness, others EENTM: denies: blurred vision, double vision, ear bleeding, ear discharge, ear drainage, ear pain, ear ringing, eye pain, eye redness, hearing loss, mouth pain, mouth swelling, nasal discharge, nose bleeding, nose congestion, nose pain, photophobia, tearing, throat pain, throat swelling, voice changes, others Respiratory: denies: cough, hemoptysis, orthopnea, SOB at rest, shortness of breath, SOB with excertion, stridor, wheezing, others Cardiovascular: denies: chest pain, dizzy spells, diaphoresis, Dyspnea on exertion, edema, irregular heart beat, left arm pain, lightheadedness, palpitations, PND, syncope, others Gastrointestinal: denies: abdomen distended, abdominal pain, blood streaked bowels, constipated, diarrhea, dysphagia, difficulty swallowing, hematemesis, melena, nausea, poor appetite, poor fluid intake, rectal bleeding, rectal pain, vomiting, others Genitourinary: denies: burning, dysuria, flank pain, frequency, hematuria, incontinence, penile discharge, penile sore, pain, testicle pain, testicle swelling, urgency, others Neurological: denies: dizziness, fainting, headache, left sided numbness, left sided weakness, numbness, paresthesia, pre-existing deficit, right sided numbness, right sided weakness, seizure, speech problems, tingling, tremors, weakness, others Musculoskeletal: denies: back pain, gout, joint pain, joint swelling, muscle pain, muscle stiffness, neck pain, others Integumetry: reports: rash (Abdomen); denies: bruises, change in color, change in hair/nails, dryness, laceration, lesions, lumps, wounds, others Allergic/Immunocompromised: denies: Difficulty Healing, Frequent Infections, Hives, Itching, others Hematologic/Lymphatic: denies: anemia, blood clots, easy bleeding, easy bruising, swollen glands, others Psychiatric: denies: anxiety, bipolar disorder, depression, hopeless, panic disorder, schizophrenia, sleepless, suicidal, others Physical Exam General Appearance: No Apparent Distress, Normal HEENT: Pharynx Normal Neck: Full Range of Motion, Non-Tender Respiratory: Lungs Clear, No Respiratory Distress, Normal Breath Sounds Cardiovascular: No Murmur, Normal Peripheral Pulses, Regular Rate/Rhythm Breast Exam: Deferred Gastrointestinal: No Organomegaly, Non Tender, No Pulsatile Mass, Normal Bowel Sounds, Soft Genitalia: Deferred Pelvic: Deferred Rectal: Deferred Extremities: No calf tenderness, Normal capillary refill, Normal inspection, Normal range of motion, Non-tender, No pedal edema Musculoskeletal : Apperance: Normal Neurologic: Alert, cafeteria helper II-XII nml as Tested, No Motor Deficits, Normal Affect, Normal Mood, No Sensory Deficits Cerebellar Function: Normal Reflexes: Normal Skin: Dry, Normal Color, Rash (Cellulitic papular rash noted lower mid abdomen. Open nickel size lesion without any drainage or streaking. No noted excoriations), Warm Lymphatic: No Adenopathy Was a procedure done? Was a procedure done?: No Differential Diagnosis (INTG) Differential Diagnosis: Cellulitis Differential Diagnosis: Atopic dermatitis, Herpes Zoster/Simplex, Impetigo, Scabies X-Ray, Labs, Meds, VS Vital Signs Date Time Temp Pulse Resp B/P (MAP) Pulse Ox O2 Delivery O2 Flow Rate FiO2 02/25/24 03:05 91 16 98 Room Air 02/25/24 02:45 98.4 91 16 147/90 (109) 98 98.4 02/25/24 01:22 97.7 107 16 147/96 (113) 96 X-Ray, Labs, Meds, VS Comment Please cellulitic trial doxycycline twice daily x7 days and Bactroban twice daily x5 days. Advised to follow up with his PCP, urgent care or back here in the ER in 2-3 days for infection re-evaluation. Advised to rest increase p.o. fluids with electrolytes [id number] Tylenol or Motrin as needed for the pain labeled dosing instructions. ER return precautions given patient indicates understanding agrees with discharge plan of care. Time of 1ST Reevaluation: 03:06 Reevaluation 1ST: Improved Patient Education/Counseling: Diagnosis, Treatment, Prognosis, Need For Follow Up Family Education/Counseling: No Family Present Departure 1 Departure Time of Disposition: 03:06 Impression: Primary Impression: Cellulitis of abdominal wall Disposition: 01 HOME / SELF CARE / HOMELESS Condition: Stable e-Prescriptions Mupirocin (Pseudomonas Fluores (Mupirocin) 2 % Oin 2 % EX BID for 5 Days, #22 GRAMS Prov: ANMOL THIBODEAUX 02/25/24 Doxycycline Hyclate (Doxycycline Hyclate) 100 Mg Cap 1 CAP PO BID for 7 Days, #14 CAP Prov: ANMOL THIBODEAUX 02/25/24 Discharged With: Self Critical Care Note Critical Care Time?: No Stability Stability form required: No ANMOL THIBODEAUX Feb 25, 2024 03:09
== END 2024-02-25 04:03 | disposition home or self-care (01) ==
LOC: ER 00:55
DX: L03.311 Cellulitis of abdominal wall (principal); J45.909 Unspecified asthma, uncomplicated; F17.210 Nicotine dependence, cigarettes, uncomplicated; F15.90 Other stimulant use, unspecified, uncomplicated; Z79.1 Long term (current) use of non-steroidal anti-inflammatories (NSAID); Z79.52 Long term (current) use of systemic steroids; Z79.899 Other long term (current) drug therapy

== ENCOUNTER 2025-02-13 01:31 | Emergency (ER) | payer MEDICAID ==
[~2025-02-13] VITALS: Ht 180.3 cm; Wt 82.0 kg
[2025-02-13 01:52] VITALS: BP 164/106; PULSE 102; RESP 20; TEMP 98.2; O2SAT 98
== END 2025-02-13 01:36 | disposition left against medical advice (07) ==
LOC: ER 01:31 → EDBD 01:31 → ER 01:36
DX: R07.89 Other chest pain (principal); F41.9 Anxiety disorder, unspecified; Z53.21 Procedure and treatment not carried out due to patient leaving prior to being seen by health care provider

== ENCOUNTER 2025-02-16 21:47 | Emergency (ER) | payer MEDICAID ==
[~2025-02-16] VITALS: Ht 180.3 cm; Wt 81.9 kg
--- NOTE | 2025-02-16 22:46 | ED.PDOC ---
History of Present Illness HPI Comments 49 y/o M presents with c/c of right thumb pain. Patient reports smashing said thumb with a closing door on accident 1x hour ago. Associated swelling and bruising. CSM intact. Denial of any further injuries or acute symptoms. Chief Complaint: Upper Extremity Time Seen by MD: 22:01 Primary Care Provider: UNKNOWN Reviewed Notes: Nurses Notes, Medications, Allergies Allergies: Coded Allergies: NO KNOWN ALLERGIES (Unverified , 12/14/09) Home Meds Active Scripts Ibuprofen (Ibuprofen) 800 Mg Tab, 800 MG PO Q8HP PRN for 5 Days, #15 TAB Prov:ANMOL THIBODEAUX 02/16/25 Prednisone (Prednisone) 20 Mg Tab, 20 MG PO BID for 5 Days, #10 TAB 0 Refills Prov:CALEB MEIER 12/22/23 Albuterol Sulfate (VENTOLIN MDI) 90 Mcg Ih, 2 PUFF IN Q6HPRN, #1 INH 0 Refills Prov:CALEB MEIER 12/22/23 Azithromycin (Azithromycin) 250 Mg Tab, 250 MG PO DAILY MDD 500 for 5 Days, #6 TAB 0 Refills 2 TABLETS ORALLY ON DAY ONE, THEN 1 TABLET ORALLY DAILY FOR 4 DAYS Prov:CALEB MEIER 12/22/23 Naproxen (Naproxen) 500 Mg Tab, 500 MG PO BID, #20 TAB Prov:DENISSE PAIZ 09/17/23 Cephalexin Monohydrate (Cephalexin) 500 Mg Cap, 1 CAP PO QID, #28 CAP Prov:DENISSE PAIZ 09/17/23 Cephalexin Monohydrate (Cephalexin) 500 Mg Cap, 1 CAP PO BID for 7 Days, #14 CAP 0 Refills Prov:CALEB MEIER 09/15/23 Sulfamethoxazole W/Trimethopri (Bactrim Ds Tablet) 1 Tab Tb, 1 TAB PO BID for 7 Days, #14 TAB Prov:RUBEN SAGASTUME 09/11/23 Ibuprofen Micronized (Ibuprofen) 800 Mg Tab, 800 MG PO Q8HPRN PRN, #20 TAB Prov:RUBEN SAGASTUME 09/11/23 Hydrocodone-Acetaminophen (Hydrocodone Bitartrate/AC 5-325 mg) 1 Tab Tab, 1 TAB PO Q6HPRN PRN, #10 TAB Prov:RUBEN SAGASTUME 09/11/23 Acetaminophen (Acetaminophen) 500 Mg Tab, 500 MG PO Q4HPRN, #30 TAB 0 Refills Prov:CALEB MEIER 07/28/23 Promethazine-Dm (Promethazine Dm 6.25-15 mg/5Ml) 1 Karolina Karolina, 5 ML PO TID, #150 ML Prov:DENISSE PAIZ 06/17/23 Prednisone (Prednisone) 20 Mg Tab, 60 MG PO DAILY, #15 TAB Prov:DENISSE PAIZ 06/17/23 Naproxen Sodium (Naproxen) 220 Mg Tab, 220 MG PO BID PRN for 7 Days, #14 TAB Prov:ALFONZO BRONSON MD 05/29/23 Reported Medications Albuterol (Albuterol) Pow 12/14/09 Information Source: Patient Mode of Arrival: Ambulatory Severity: Moderate Timing: Minutes Duration: Since onset Prehospital treatment: None Past Medical History PAST MEDICAL HISTORY: Asthma Surgical History: Denies all surgeries Family History Family History: Unknown Social History Smoker: Cigarettes, Less Than 1 Pack/Day Alcohol: Denies ETOH Use Drugs: Marijuana, Methamphetamine Lives In: Home All Other Systems: Reviewed and Negative (As per HPI) Physical Exam General Appearance: No Apparent Distress, Normal HEENT: Pharynx Normal Neck: Full Range of Motion, Non-Tender Respiratory: Lungs Clear, No Respiratory Distress, Normal Breath Sounds Cardiovascular: No Murmur, Normal Peripheral Pulses, Regular Rate/Rhythm Breast Exam: Deferred Gastrointestinal: Non Tender, Soft Genitalia: Deferred Pelvic: Deferred Rectal: Deferred Extremities: Normal capillary refill, Normal range of motion Musculoskeletal : Location: Right Extremity Location: Thumb (Mild edema distal phalanx fingernail intact no noted ecchymosis open lesions cap refill less than 3 seconds strength sensory motion intact) Apperance: Normal Neurologic: Alert, No Motor Deficits, Normal Affect, Normal Mood, No Sensory Deficits Cerebellar Function: Normal Reflexes: NOT DONE Skin: Dry, Normal Color, Warm Lymphatic: No Adenopathy Was a procedure done? Was a procedure done?: No Differential Dx Considerations may include: fractures, contusions, sprain, strain, dislocation, among others X-Ray, Labs, Meds, VS Vital Signs Date Time Temp Pulse Resp B/P (MAP) Pulse Ox O2 Delivery O2 Flow Rate FiO2 02/16/25 23:37 83 16 98 Room Air 02/16/25 23:37 97.8 83 16 152/106 (121) 98 97.8 02/16/25 21:52 98.0 94 16 137/95 96 98.0 Current Medications Medications (Trade) Dose Ordered Sig/Daryl Route Start Time Stop Time Status Last Admin Acetaminophen/ Hydrocodone Bitart (Mason 5/325MG Tab) 1 tab ONCE ONCE PO 02/16/25 23:45 02/16/25 23:46 DC 02/16/25 23:47 X-Ray, Labs, Meds, VS Comment X-ray shows no acute fractures dislocations or osseous lesions. [id number] Tylenol or Motrin as needed for the pain. Advised on rice. Follow up with PCP 2-3 days as necessary. Advised on ER return precautions, pt indicates understanding and agree with discharge plan of care. Images Reviewed?: Images reviewed and evaluated by me Time of 1ST Reevaluation: 22:01 Reevaluation 1ST: Unchanged Time of 2ND Reevaluation: 23:29 Reevaluation 2ND: Improved Patient Education/Counseling: Diagnosis, Treatment, Need For Follow Up Family Education/Counseling: No Family Present SEPSIS Sepsis Screen Date sepsis recognized/suspect: Feb 16, 2025 Time Sepsis recognized/suspect: 2151 Recent Procedure: No On Antibiotic Therapy: No Respiratory Rate >20: No Heart Rate >90: Yes Temp<36 C (96.8 F) or >38.3 C: No SBP <90 or MAP <65 mmHG: No New Acute Mental Status Change: No Is the patient on CPAP, BIPAP,: No Physician Orders R Hand 3 View Xray (02/16/25 22:02) Vital Signs Date Time Temp Pulse Resp B/P (MAP) Pulse Ox O2 Delivery O2 Flow Rate FiO2 02/16/25 23:37 83 16 98 Room Air 02/16/25 23:37 97.8 83 16 152/106 (121) 98 97.8 02/16/25 21:52 98.0 94 16 137/95 96 98.0 Medications Medications Dose Ordered Sig/Daryl Route Start Time Stop Time Status Last Admin Dose Admin Acetaminophen/ Hydrocodone Bitart 1 tab ONCE ONCE PO 02/16/25 23:45 02/16/25 23:46 DC 02/16/25 23:47 Departure 1 Departure Time of Disposition: 23:29 Impression: Primary Impression: Contusion of right thumb without damage to nail, initial encounter Disposition: HOME / SELF CARE / HOMELESS Condition: Stable e-Prescriptions Ibuprofen (Ibuprofen) 800 Mg Tab 800 MG PO Q8HP PRN for 5 Days, #15 TAB Prov: ANMOL THIBODEAUX 02/16/25 Discharged With: Self Critical Care Note Critical Care Time?: No Stability Stability form required: No Heart Score Heart Score: Heart Score Response (Comments) Value History N/A 0 EKG N/A 0 Age N/A 0 Risk Factors N/A 0 Troponin N/A 0 Total 0 I personally scribed for ER ([email or web address]) on 02/16/25 at 22:46. Electronically submitted by Mario Bronson [email or web address]). ER Feb 16, 2025 22:46 ANMOL THIBODEAUX Feb 16, 2025 23:30
--- NOTE | 2025-02-16 23:05 | DVH ---
CLINICAL INDICATION: right thumb injury, pain TECHNIQUE: XYXY R HAND 3 VIEW XRAY COMPARISON: None FINDINGS/IMPRESSION: : There is no evidence of acute fracture or dislocation. Soft tissues are unremarkable. Surgical screw through the distal radius.
[2025-02-16] MEDS ORDERED: IBUP-1456 PO (23:30)
[2025-02-16 23:37] VITALS: BP 152/106; PULSE 83; RESP 16; TEMP 97.8; O2SAT 98
[2025-02-16] MEDS: HYDROcodone-ACET 5/325MG TAB PO ONE (23:47)
== END 2025-02-16 23:57 | disposition home or self-care (01) ==
LOC: ER 21:47
DX: S60.011A Contusion of right thumb without damage to nail, initial encounter (principal); J45.909 Unspecified asthma, uncomplicated; F17.210 Nicotine dependence, cigarettes, uncomplicated; F12.90 Cannabis use, unspecified, uncomplicated; F19.90 Other psychoactive substance use, unspecified, uncomplicated; Z79.899 Other long term (current) drug therapy; Z79.52 Long term (current) use of systemic steroids; X58.XXXA Exposure to other specified factors, initial encounter; Y93.89 Activity, other specified; Y92.89 Other specified places as the place of occurrence of the external cause; Y99.8 Other external cause status
CPT/HCPCS: 73130